=== PATIENT | female | born 1965 | race Hispanic/Latino ===

== ENCOUNTER 2021-05-10 19:11 | Emergency (ER) | payer SELFPAY ==
[~2021-05-10] VITALS: Ht 172.7 cm; Wt 84.4 kg
[~2021-05-10 19:11] MED LIST: METFORMIN HCL500 MG PO
[2021-05-10] MEDS ORDERED: DONNATAL/LIDOCAINE/MAALOX 30 ML SUSP PO ONE (19:30)
[2021-05-10 19:49] LABS: BASOPHILS # (AUTO) 0.1 (0.0-0.1); BASOPHILS % 0.9 % (0.0-1.0); EOSINOPHILS # (AUTO) 0.1 (0.0-0.4); EOSINOPHILS % 2.1 % (0.0-6.0); HEMATOCRIT 42.3 % (34.2-44.1); HEMOGLOBIN 13.3 g/dL (12.0-16.0); LYMPHOCYTES % 37.6 % (18.0-39.1); MEAN CORPUSCULAR HEMOGLOBIN 25.8 pg (28-32); MEAN CORPUSCULAR HGB CONC 31.4 g/dL (31-35); MEAN CORPUSCULAR VOLUME 82.1 fL (81-99); MONOCYTES # (AUTO) 0.3 (0.2-0.8); MONOCYTES % 5.1 % (4.4-11.3); NEUTROPHILS # (AUTO) 2.8 (2.1-6.9); NEUTROPHILS % 53.9 % (38.7-80.0); PLATELET COUNT 216 x10e3/uL (140-360); RED BLOOD COUNT 5.15 x10e6/uL (3.6-5.1); RED CELL DISTRIBUTION WIDTH 12.5 % (11.7-14.4)
[2021-05-10 19:58] LABS: INR 0.77; PROTHROMBIN TIME 10.9 seconds (11.9-14.5)
[2021-05-10 20:05] LABS: PARTIAL THROMBOPLASTIN TIME 22.3 seconds (23.8-35.5)
[2021-05-10 20:06] LABS: ALANINE AMINOTRANSFERASE 24 IU/L (0-55); ALBUMIN 3.4 g/dL (3.5-5.0); ALBUMIN/GLOBULIN RATIO 0.7 (0.8-2.0); ALKALINE PHOSPHATASE 134 IU/L (40-150); ANION GAP 13.8 mmol/L (8-16); BLOOD UREA NITROGEN 12 mg/dL (7-26); BUN/CREATININE RATIO 10 (6-25); CALCIUM 9.2 mg/dL (8.4-10.2); CARBON DIOXIDE 23 mmol/L (22-29); CHLORIDE 100 mmol/L (98-107); CREATINE KINASE 52 IU/L (29-168); CREATININE, SERUM 1.16 mg/dL (0.57-1.11); EST GLOMERULAR FILTRATION RATE 48 ML/MIN (60-); POTASSIUM 3.8 mmol/L (3.5-5.1); SODIUM 133 mmol/L (136-145)
[2021-05-10 20:07] LABS: GLUCOSE 481 mg/dL (74-118)
[2021-05-10] MEDS ORDERED: INSULIN REGULAR, HUMAN 100 UNIT/1 ML SQ ONE (20:45)
[2021-05-10] MEDS ORDERED: SODIUM CHLORIDE 0.9% 1000ML 1,000 ML IV ONE (20:45)
[2021-05-10] MEDS ORDERED: BELLADONNA ALK/PHENOBARBITAL 5 ML UDC ONE (21:07)
[2021-05-10] MEDS ORDERED: LIDOCAINE VISC 2% SOLN 15 ML UDC ONE (21:07)
[2021-05-10] MEDS ORDERED: MAGNESIUM/ALUMINUM/SIMETHICONE 30 ML UDC ONE (21:08)
== END 2021-05-10 23:34 | disposition home or self-care (01) ==
LOC: ER 20:36
DX: R06.02 Shortness of breath (principal); R07.9 Chest pain, unspecified; E11.65 Type 2 diabetes mellitus with hyperglycemia; G40.909 Epilepsy, unspecified, not intractable, without status epilepticus; K21.9 Gastro-esophageal reflux disease without esophagitis
CPT/HCPCS: 36415; 71045; 80053; 82550; 82553; 82948; 84484; 85025; 85610; 85730; 93005; 99283; J1817; J7030

== ENCOUNTER 2022-06-13 13:46 | Emergency (ER) | payer OTHER ==
[~2022-06-13] VITALS: Ht 170.2 cm; Wt 83.0 kg
[2022-06-13] MEDS ORDERED: IBUPROFEN600 MG PO (15:17)
== END 2022-06-13 15:32 | disposition home or self-care (01) ==
LOC: ER 13:51
DX: M25.531 Pain in right wrist (principal); W01.0XXA Fall on same level from slipping, tripping and stumbling without subsequent striking against object, initial encounter; Y93.01 Activity, walking, marching and hiking; Y92.89 Other specified places as the place of occurrence of the external cause; E11.9 Type 2 diabetes mellitus without complications; G40.909 Epilepsy, unspecified, not intractable, without status epilepticus
CPT/HCPCS: 99283

== ENCOUNTER 2022-06-24 09:22 | Emergency (ER) | payer SELFPAY ==
[~2022-06-24] VITALS: Ht 170.2 cm; Wt 83.0 kg
[~2022-06-24 09:22] MED LIST changes: +IBUPROFEN600 MG PO
[2022-06-24] MEDS ORDERED: KETOROLAC TROMETHAMINE 60 MG/2 ML VIAL IM ONE (10:15)
[2022-06-24] MEDS ORDERED: KETOROLAC TROME10 MG PO (11:37)
== END 2022-06-24 12:20 | disposition home or self-care (01) ==
LOC: ER 09:35
DX: M79.631 Pain in right forearm (principal); M25.531 Pain in right wrist; M77.8 Other enthesopathies, not elsewhere classified; E11.9 Type 2 diabetes mellitus without complications; G40.909 Epilepsy, unspecified, not intractable, without status epilepticus
CPT/HCPCS: 29125; 73090; 99284; J1885

== ENCOUNTER 2022-09-10 11:57 | Emergency (ER) | payer SELFPAY ==
[~2022-09-10] VITALS: Ht 170.2 cm; Wt 83.0 kg
[~2022-09-10 11:57] MED LIST changes: +KETOROLAC TROME10 MG PO
[2022-09-10] MEDS ORDERED: ONDANSETRON HCL INJ 2MG/ML 2ML 2 MG/ML VIAL IV STA (13:41)
[2022-09-10] MEDS ORDERED: Morphine 4mg INJECTION 4 MG/ML INJ IV ONE (13:45)
[2022-09-10] MEDS ORDERED: SODIUM CHLORIDE 0.9% 1000ML 1,000 ML IV ONE ×2 (13:45→15:30)
[2022-09-10 13:58] LABS: BASOPHILS % 0.8 % (0.0-1.0); EOSINOPHILS # (AUTO) 0.1 (0.0-0.4); EOSINOPHILS % 1.9 % (0.0-6.0); HEMATOCRIT 44.2 % (34.2-44.1); HEMOGLOBIN 13.4 g/dL (12.0-16.0); LYMPHOCYTES # (AUTO) 1.5 (1.0-3.2); LYMPHOCYTES % 28.1 % (18.0-39.1); MEAN CORPUSCULAR HEMOGLOBIN 26.2 pg (28-32); MEAN CORPUSCULAR HGB CONC 30.3 g/dL (31-35); MEAN CORPUSCULAR VOLUME 86.3 fL (81-99); MONOCYTES # (AUTO) 0.3 (0.2-0.8); NEUTROPHILS # (AUTO) 3.4 (2.1-6.9); PLATELET COUNT 202 x10e3/uL (140-360); RED BLOOD COUNT 5.12 x10e6/uL (3.6-5.1)
[2022-09-10 14:17] LABS: CLARITY,URINE SL CLOUDY (CLEAR); COLOR,URINE YELLOW (YELLOW); KETONES,URINE NEGATIVE (NEGATIVE); LEUKOCYTE ESTERASE ,URINE NEGATIVE (NEGATIVE); NITRITE,URINE NEGATIVE (NEGATIVE); PROTEIN,URINE DIPSTICK NEGATIVE (NEGATIVE); URINE UROBILINOGEN 0.2 mg/dL (0.2 - 1)
[2022-09-10 14:19] LABS: ALBUMIN 3.4 g/dL (3.5-5.0); ALBUMIN/GLOBULIN RATIO 0.7 (0.8-2.0); ANION GAP 16.3 mmol/L (8-16); CALCIUM 9.1 mg/dL (8.4-10.2); CREATININE, SERUM 1.12 mg/dL (0.57-1.11); POTASSIUM 4.3 mmol/L (3.5-5.1)
[2022-09-10 14:29] LABS: EPITHELIAL CELLS,URINE FEW /LPF; YEAST,URINE MODERATE
[2022-09-10 14:30] LABS: BACTERIA,URINE MANY /HPF; RBC,URINE 0-5 /HPF (0-5)
[2022-09-10] MEDS ORDERED: KETOROLAC TROMETHAMINE 30 MG/ML VIAL IV ONE (15:30)
[2022-09-10] MEDS ORDERED: METFORMIN HCL500 MG PO (16:28)
[2022-09-10] MEDS ORDERED: CEPHALEXIN500 MG PO (16:28)
== END 2022-09-10 17:24 | disposition home or self-care (01) ==
LOC: ER 12:14
DX: R10.31 Right lower quadrant pain (principal); N39.0 Urinary tract infection, site not specified; E11.65 Type 2 diabetes mellitus with hyperglycemia; Z20.822 Contact with and (suspected) exposure to COVID-19; G40.909 Epilepsy, unspecified, not intractable, without status epilepticus
CPT/HCPCS: 36415; 74177; 80053; 81001; 83036; 83690; 85025; 99284; J1885; J2270; J2405; J7030; U0002

== ENCOUNTER 2024-10-13 15:25 | Emergency (ER) | payer OTHER ==
[~2024-10-13] VITALS: Ht 172.7 cm; Wt 78.5 kg
[~2024-10-13 15:25] MED LIST changes: +CEPHALEXIN500 MG PO; +NAPROSYN500 MG PO; +ORPHENADRINE C100 MG PO
[2024-10-13 16:25] VITALS: PULSE 90; RESP 16; TEMP 99
[2024-10-13] MEDS ORDERED: SULFAMETHOXAZOLE-TMP (16:36)
[2024-10-13] MEDS ORDERED: VALTREX1000 MG PO (18:27)
[2024-10-13 18:51] VITALS: BP 121/64; PULSE 79; RESP 16; O2SAT 100
== END 2024-10-13 18:55 | disposition home or self-care (01) ==
LOC: ER 18:19
DX: B02.29 Other postherpetic nervous system involvement (principal); E11.9 Type 2 diabetes mellitus without complications; G40.909 Epilepsy, unspecified, not intractable, without status epilepticus
CPT/HCPCS: 99282